=== PATIENT | female | born 2000 | race Caucasian/White ===

== ENCOUNTER 2024-08-12 13:03 | Inpatient (IN) | payer OTHER, MEDICAID ==
[2024-08-12] MEDS ORDERED: MAG HYDROX/AL HYDROX/SIMETH 355 ML BOTTLE PO PRN (13:08)
[2024-08-12] MEDS ORDERED: ACETAMINOPHEN TAB 325 MG TAB PO PRN (13:08)
[2024-08-12] MEDS ORDERED: hydrOXYzine HCL 50 MG/ML 1 ML VIAL IM PRN (13:11)
[2024-08-12] MEDS ORDERED: OLANZapine 10 MG TAB PO PRN (13:11)
--- NOTE | 2024-08-12 18:02 | P.MDCNMH ---
History of Present Illness H&P Date: 08/12/24 Chief Complaint: suicidal ideation 23-year-old female presented emergency department for suicidal ideation. She states that she" has no boundaries" told me that she has been violent with her boyfriend and pets. He does not know the cause of that. Unable to have clear line of thought. Denies hallucinations. Denies chest pain, shortness of breath, no nausea or vomiting. No recent illness. Of note she has not been eating properly over the past several months, she has been really thin and lost her period.. Review of Systems Complete review of system performed, pertinent positives per HPI, otherwise negative Past Medical History Past Medical History: No Reported History History of Any Multi-Drug Resistant Organisms: None Reported Additional Past Surgical History / Comment(s): Cochlear Implant 3 years ago in August. Past Anesthesia/Blood Transfusion Reactions: No Reported Reaction Past Psychological History: Anxiety Smoking Status: Never smoker Past Alcohol Use History: None Reported Past Drug Use History: Marijuana Additional Drug Use History / Comment(s): Pt smokes marajuana daily. Medications and Allergies Allergies Allergy/AdvReac Type Severity Reaction Status Date / Time No Known Allergies Allergy Verified 08/12/24 13:08 Physical Exam Vitals: Vital Signs Temp Pulse Resp BP Pulse Ox 08/12/24 16:47 98.1 F 120 H 20 112/78 96 Intake and Output 08/12/24 08/12/24 08/12/24 06:59 14:59 22:59 Other: Weight 38.8 kg 38 kg Vital signs reviewed General: nontoxic, no distress, appears at stated age Derm: warm, dry Head: atraumatic, normocephalic, symmetric Eyes: EOMI, no lid lag, anicteric sclera, pupils equal round reactive to light ENT: Nose and ears atraumatic Neck: No thyromegaly, supple Mouth: no lip lesion, mucus membranes moist Cardiovascular: S1S2 reg, no murmur, no edema Lungs: clear to auscultation bilateral, no rhonchi, no rales, no wheeze, no accessory muscle use Abdominal: soft, distended, mild generalized tenderness, no guarding, no appreciable organomegaly Ext: mild muscle atrophy, muscle strength muscle strength 5 out of 5 in all 4 extremities, no contractures Neuro: CN II-XII grossly intact. No focal deficits. Cranial Nerve Examination - Cranial Nerves Cranial Nerve II- Optic: Intact Cranial Nerve III- Oculomotor: Intact Cranial Nerve IV- Trochlear: Intact Cranial Nerve V- Trigeminal: Intact Cranial Nerve - Abducens: Intact Cranial Nerve VII- Facial: Intact Cranial Nerve VIII- Auditory: Intact Cranial Nerve IX- Glossopharyngeal: Intact Cranial Nerve X- Vagus: Intact Cranial Nerve XI- Accessory: Intact Cranial Nerve XII- Hypoglossal: Intact Assessment and Plan Plan: Amenorrhria with severe malnutrition Order Ensure supplements Patient encouraged to eat properly Psychiatrist to consider an appetite stimulant with the psychoactive medication regimen Check TSH and prolactin levels Metabolic acidosis Likely secondary to starvation ketosis Expected to resolve with proper nutrition and hydration Bipolar disorder with suicidal ideation and impulsiveness Management per psychiatry Labs including CBC, CMP, urinalysis and urine drug screen were reviewed from the outside hospital Thank you very much for the consultation, please do not hesitate to call back with any abnormal results or questions.
[2024-08-12] MEDS: busPIRone HCl 5 MG TAB PO SCH (19:56)
[2024-08-12] MEDS: QUEtiapine 50 MG TAB PO SCH (19:57)
[2024-08-13] MEDS: OLANZapine 10 MG VIAL IM PRN (02:48)
[2024-08-13] MEDS: lamoTRIgine 25 MG TAB PO SCH (09:02)
[2024-08-13] MEDS: MAGNESIUM HYDROXIDE 2,400 MG/30 ML CUP PO PRN (10:32)
[2024-08-13] MEDS: PNEUMOCOCCAL VACC-PREVNAR-20 0.5 ML SYR IM ONE (11:28)
--- NOTE | 2024-08-13 12:34 | P.HP ---
Psychiatric H&P - . H&P Date: 08/13/24 History & Physical: Allergies Allergy/AdvReac Type Severity Reaction Status Date / Time No Known Allergies Allergy Verified 08/12/24 13:08 Vital Signs Temp 97.8 F 08/13/24 09:00 Pulse 137 H 08/13/24 09:00 Resp 20 08/13/24 09:00 BP 120/76 08/13/24 09:00 Pulse Ox 97 08/13/24 09:00 FiO2 Intake & Output 08/12/24 08/13/24 08/13/24 18:59 06:59 18:59 Weight 38 kg Laboratory Last Values TSH 2.220 mIU/L (0.465-4.680) 08/13/24 10:19 08/13/24 12:23 IDENTIFYING DATA: Patient is a 23-year-old female, living with partner, employed at school for [employer] CHIEF COMPLAINT: SI, paranoia, dissociation HPI: Patient presented to the hospital with suicidal ideations, racing thoughts, paranoia, dissociation with nonadherence to medication. Per EPS, "Pt reports SI and racing thoughts. Pt has as hx of suicide attempts. Pt has been non compliant with medications for 6+ months. Charting reports paranoia, anxiety, and disassociation. Covid neg, hcg neg, UA WNL, UDS +MJ. ETOH <10. No prns or restraints reported. No guardian. ADHD, bipolar dx per charting. [facility] was consulted in [place] [facility] and pt was restarted on Buspar 7.5mg BID, Lamotrigine 25 QD, and Seroquel 50mg BID. Pt pet/cert." Patient seen and evaluated on the unit and was agreeable with speaking to junior underwriter in office. She states being here due to her having symptoms of cognitive dissonance described as her internally knowing the right thing to do however externally doing the wrong things. She feels as though she is manipulative, lacks empathy and thus experiences shame and guilt for her behaviors. She uses several examples including using her partner home she broke up with yesterday because of her manipulation, stating that she would use him to get what she want such as going to the dispensary for her due to her not wanting to be seen buying cannabis. 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 She states manipulating some of the children at her school such as allowing herself to hold their hand despite her knowing this is against the rules in order to build a rapport so that she can be able to use them in the future. She talked about her history of watching under age porn which causes her distress and shame. She expresses sleep and appetite difficulties, low energy, anhedonia and suicidal ideations, no plan or intent that has been intermittent since elementary school. She is interested in therapy and personality disorders were discussed with patient and she was encouraged to consider DBT. Patient denies any homicidal ideations intent or plan. At this time patient denies any auditory or visual hallucinations. Patient denies any flight of ideas racing thoughts and increased in goal directed behavior. Patient admits to using 1 g of cannabis per week. PAST PSYCHIATRIC HISTORY: Patient has a history of bipolar disorder. Patient denies being on any psychiatric medications. She has tried Vraylar and Zyprexa previously. Patient reports 1 previous inpatient hospitalization back in September 2023. Patient denies any psychiatric outpatient follow-up. Patient reports one suicide attempt back at the age of 12-13 PMH: as per ER note ALLERGIES: as per EMR SUBSTANCE USE HISTORY: Patient reports smoking 1 g of cannabis per week, denying any other substances. FAMILY PSYCHIATRIC/SUBSTANCE USE HISTORY: Patient states both of her parents have bipolar disorder SOCIAL HISTORY: Patient was recently living with her partner however she states due to their break-up she would not return home with them. She currently works at the [employer] for the [employer]. She has no children. MENTAL STATUS EXAM: General Appearance: Patient appears to be stated age is alert, directable, and attempts to cooperate. Patient appears to have poor hygiene and grooming. Behavior: Patient is seated without any agitated behavior. Speech: Patient's speech is fluent and nonpressured. Mood/Affect: Patient reports their mood is depressed, affect is congruent and constricted. Suicidality/Homicidality: Patient denies having any homicidal ideation intent or plan. Patient reports suicidal ideations, no plan or intent Perceptions: Patient denies any visual hallucinations and denies any auditory hallucinations Though content/process: Patient is fixated on her being manipulative, shame/guilt however thought process is linear Memory and concentration: AOX3, grossly intact for the purposes of this session. Can spell "WORLD" backwards Judgment and insight: Fair STRENGTHS/WEAKNESSES: strength is that patient is resilient. Weakness is that patient has poor judgment and is impulsive INTELLECT: Average IMPRESSIONS: Bipolar disorder, current episode depressed Cannabis use disorder Cluster B traits PLAN: -Patient is admitted under voluntary status to MHU for stabilization of psychiatric symptoms and safety. Patient has signed adult voluntary form and and is placed in patient's chart. -Medications : Increase Seroquel to 50 mg daily and 100 mg at bedtime for psychosis/insomnia, continue Lamictal 25 mg daily for mood stabilization, BuSpar 7.5 mg twice daily for anxiety - Hydroxyzine and Zyprexa PRN for agitation/aggression -Patient was counselled on substance abuse and desired to cut back on use -Patient was informed of the risks, benefits and side effects of the medication and patient verbally consented to taking the medications. Patient signed med consent form and was placed in chart. Patient offered and accepted patient education sheet for psychotropic medications. -Internal Medicine consult to perform medical evaluation and physical. -NRT -not needed as patient does not smoke -SW on board for discharge planning. Encourage patient to participate in groups to work on coping skills.
[2024-08-13] MEDS: QUEtiapine 100 MG TAB PO SCH (20:13)
[2024-08-13] MEDS: hydrOXYzine pamoate 25 MG CAP PO PRN (20:13)
[2024-08-14] MEDS: QUEtiapine 50 MG TAB PO SCH (08:48)
[2024-08-14 09:57] LABS: Glucose,Whole Blood 95 mg/dL (70-110)
[2024-08-14 11:38] VITALS: BMI 17.6
--- NOTE | 2024-08-14 18:52 | P.PN ---
Progress Note - Text Progress Note Date: 08/14/24 Interval history: Patient was seen talking on the phone and was directable and agreeable to speak with designer writer. She is calm and polite on assessment. At this time patient denies any suicidal or homicidal ideation, intent or plan. Denies any auditory or visual hallucinations. Patient reports some daytime sleepiness from the Seroquel, but otherwise denies any side effects from the medications and has been compliant with meds. She denies rash from the Lamictal. She agrees to continue the Seroquel at the current dose for another day and if she continues to feel daytime sleepiness she will let the psychiatrist know tomorrow. She denies any other concerns today. Mental status exam: General Appearance: Patient appears to be stated age, petite slender adult female, adequate hygiene, wearing hearing device in ears Behavior: No agitated behavior. Patient is calm and directable. Speech: Patient's speech is fluent and non-pressured. Mood/Affect: Mood is improving mildly, affect is congruent and constricted. Suicidality/Homicidality: Patient denies having any suicidal or homicidal ideation intent or plan. Perceptions: Patient denies any auditory or visual hallucinations. Though content/process: There is no evidence of any delusional thought content and thought process is linear and goal-directed. Memory and concentration: AOX3, grossly intact for the purposes of this session Judgment and insight: improving mildly Assessment/Plan: Continue with current diagnosis. Patient continues to meet criteria for inpatient psychiatric admission for symptom stabilization and safety. Patient will be maintained on current psychotropic medication regimen. Monitor for medication compliance and for any psychotropic medication side effects. Will continue to monitor ongoing response to treatment. Encouraged participation in milieu.
[2024-08-15] MEDS: lamoTRIgine 25 MG TAB PO SCH (12:18)
--- NOTE | 2024-08-15 12:57 | P.PN ---
Progress Note - Text Progress Note Date: 08/15/24 Interval History: Patient was seen today she was taking part in the group earlier today in the [facility]. she was fairly directable and agreeable to speak in the office. she states that today she has been feeling a bit anxious, is endorsing anhedonia mainly with depression. Claims that she is struggling with finding motivation and energy to do things. Claims that she feels that she is also bit tired during the day since taking the Seroquel. She claims that she is engaged with her treatment and wants to get better, did claim that she has a history of having mood swings and manic episodes and also agitation irritability. Also claims that she is concerned about having "manipulative behavior" towards other people at times.. States that she had poor sleep, about 4 hrs. her appetite is poor. she states that she is going to groups, showering. Denies any suicidal or homicidal thoughts intent or plan. and denies any Ah or VH. Not reporting any other side effects at this time. MENTAL STATUS EXAM: General Appearance: Patient appears to be stated age is alert, directable, and attempts to cooperate. Patient appears to have improving attempts to cooperate. Behavior: Patient is seated without any agitated behavior. Attempts to cooperate Speech: Patient's speech is fluent and nonpressured. Fairly concrete Mood/Affect: Patient reports their mood is depressed/anhedonia and anxiety, affect is congruent and constricted. Suicidality/Homicidality: Patient denies having any homicidal ideation intent or plan. Patient denies any suicidal ideations, no plan or intent Perceptions: Patient denies any visual hallucinations and denies any auditory hallucinations Though content/process: Patient is fixated on her being manipulative, shame/guilt, endorsing depression and anhedonia. Denies any delusional thinking or paranoia. Memory and concentration: AOX3, grossly intact for the purposes of this session Judgment and insight: Improving mildly IMPRESSIONS: Bipolar disorder, current episode depressed Cannabis use disorder Cluster B traits PLAN: -Patient is admitted under voluntary status to MHU for stabilization of psychiatric symptoms and safety. Patient has signed adult voluntary form and and is placed in patient's chart. -Medications : decrease Seroquel 100 mg at bedtime for psychosis/insomnia, increase Lamictal 25 mg bid for mood stabilization, increase BuSpar 10 mg twice daily for anxiety - Hydroxyzine and Zyprexa PRN for agitation/aggression -NRT -not needed as patient does not smoke -SW on board for discharge planning. Encourage patient to participate in groups to work on coping skills. Will consider discharge if patient is improving. Patient did sign AMA and it will be up for review in the evening of 08/17.
[2024-08-15] MEDS: busPIRone HCl 10 MG TAB PO SCH (20:31)
--- NOTE | 2024-08-16 11:42 | P.PN ---
Progress Note - Text Progress Note Date: 08/16/24 Interval History: Patient was seen today she was taking part in the group earlier today in the [facility]. Patient was agreeable to speak to food writer in the office today. She claims that she is doing a bit better with regard to her mood and anxiety. Claims that she feels less irritable. States that she is still feeling "anger" however she states that she is trying to work on this by going to group. Claims that she feels that she made a mistake by signing the AMA and wants to rescind it today. We spoke about potential discharge before the weekend which she is okay with. Claims that she did not sleep well last night was okay to try a higher dose of Seroquel for tonight. She states that she is not having any side effects at this time. Has been eating well. she states that she is going to groups, showering. Denies any suicidal or homicidal thoughts intent or plan. and denies any Ah or VH. Not reporting any other side effects at this time. MENTAL STATUS EXAM: General Appearance: Patient appears to be thin, curly hair, stated age is alert, directable, and attempts to cooperate. Patient appears to have improving attempts to cooperate. Behavior: Patient is seated without any agitated behavior. Attempts to cooperate, improving mildly Speech: Patient's speech is fluent and nonpressured. Fairly concrete Mood/Affect: Patient reports their mood is improving mildly, is endorsing "anger", affect is congruent and constricted. Suicidality/Homicidality: Patient denies having any homicidal ideation intent or plan. Patient denies any suicidal ideations, no plan or intent Perceptions: Patient denies any visual hallucinations and denies any auditory hallucinations Though content/process: Patient is fairly concrete, logical, goal oriented. Denies any delusional thinking or paranoia. Focused on her symptoms Memory and concentration: AOX3, grossly intact for the purposes of this session Judgment and insight: Improving mildly IMPRESSIONS: Bipolar disorder, current episode depressed Cannabis use disorder Cluster B traits PLAN: -Patient is admitted under voluntary status to MHU for stabilization of psychiatric symptoms and safety. Patient has signed adult voluntary form and and is placed in patient's chart. -Medications : Increase Seroquel 150 mg at bedtime for psychosis/insomnia, she is not reporting a rash at this time, will continue to monitor. Lamictal 25 mg bid for mood stabilization, BuSpar 10 mg twice daily for anxiety - Hydroxyzine and Zyprexa PRN for agitation/aggression -NRT -not needed as patient does not smoke -SW on board for discharge planning. Encourage patient to participate in groups to work on coping skills. Will consider discharge likely Wednesday if patient is improving. Patient eventually signed AMA however rescinded it today.
[2024-08-16] MEDS: QUEtiapine 50 MG TAB PO SCH (20:30)
--- NOTE | 2024-08-17 14:00 | P.PN ---
Progress Note - Text Progress Note Date: 08/17/24 Interval History: Patient was seen today she was taking part in the group earlier today in the [facility]. Patient was agreeable to speak to production underwriter in the office today. Patient claims that she slept on and off last night only about 5 hours. States that she woke up this morning and was feeling "suicidal" and claims that she feels other people are talking about her. She apparently called her mother yesterday and informed her that she was doing poorly on the unit having suicidal thoughts and not ready to go home. Patient has admitted to production underwriter in the past that she was "manipulative" and also has been deceptive. She was confronted about this possibility as she has been describing to production underwriter and others that she has been improving and patient began being defensive. She was endorsing mild paranoia today. Was agreeable to continuing with treatment. Have poor eye contact. Claims that her mood is fair however she is still having anxiety. Believes that she might not be ready to go back to her mother's house tomorrow. Has been eating well. she states that she is going to groups, showering. Denies any suicidal or homicidal thoughts intent or plan. and denies any Ah or VH. Not reporting any other side effects at this time. MENTAL STATUS EXAM: General Appearance: Patient appears to be thin, curly hair, stated age is alert, directable, and attempts to cooperate. Patient appears to have improving attempts to cooperate. Behavior: Patient is seated without any agitated behavior. Superficial, manipulative Speech: Patient's speech is fluent and nonpressured. Fairly concrete Mood/Affect: Patient reports their mood is improving mildly, is endorsing "anxious", affect is congruent and constricted. Suicidality/Homicidality: Patient denies having any homicidal ideation intent or plan. Patient denies any suicidal ideations, no plan or intent Perceptions: Patient denies any visual hallucinations and denies any auditory hallucinations Though content/process: Patient is fairly concrete, logical, goal oriented. Denies any delusional thinking or paranoia. Focused on her symptoms. Possible deception Memory and concentration: AOX3, grossly intact for the purposes of this session Judgment and insight: Poor, improving mildly IMPRESSIONS: Bipolar disorder, current episode depressed Cannabis use disorder Cluster B personality traits PLAN: -Patient is admitted under voluntary status to MHU for stabilization of psychiatric symptoms and safety. Patient has signed adult voluntary form and and is placed in patient's chart. -Medications : Increase Seroquel 200 mg at bedtime for psychosis/insomnia, increase Lamictal 25 mg tid for mood stabilization, increase she is not reporting a rash at this time, will continue to monitor. BuSpar 15 mg twice daily for anxiety - Hydroxyzine and Zyprexa PRN for agitation/aggression -NRT -not needed as patient does not smoke -SW on board for discharge planning. Encourage patient to participate in groups to work on coping skills. Will consider discharge likely Wednesday if patient is improving. Will have a family meeting over the phone with patient's mother tomorrow to discuss further discharge planning treatment and any other issues or concerns.
[2024-08-17] MEDS: lamoTRIgine 25 MG TAB PO SCH (16:27)
[2024-08-17] MEDS: busPIRone HCl 5 MG TAB PO SCH (20:18)
[2024-08-17] MEDS: QUEtiapine 200 MG TAB PO SCH (20:18)
[2024-08-18 09:20] VITALS: BP 107/74; PULSE 125; RESP 16; TEMP 98
--- NOTE | 2024-08-18 09:47 | P.DS ---
Providers Date of admission: 08/12/24 16:26 Expected date of discharge: 08/18/24 Attending physician: Brandon Sargent MD Consults: 08/12/24 13:08 Consult Physician Routine Consulting Provider: Yana Physician Consult Reason/Comments: H&P Do you want consulting provider notified?: Yes Primary care physician: Stated None - Discharge Diagnosis(es) (1) Bipolar disorder current episode depressed Current Visit: Yes Status: Acute Priority: High (2) Cannabis use disorder Current Visit: Yes Status: Acute Priority: Medium (3) Cluster B personality disorder Current Visit: Yes Status: Acute Priority: High Hospital Course: Admission HPI: Admission note was completed by Dr. 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 Patient presented to the hospital with suicidal ideations, racing thoughts, paranoia, dissociation with nonadherence to medication. Per EPS, "Pt reports SI and racing thoughts. Pt has as hx of suicide attempts. Pt has been non compliant with medications for 6+ months. Charting reports paranoia, anxiety, and disassociation. Covid neg, hcg neg, UA WNL, UDS +MJ. ETOH <10. No prns or restraints reported. No guardian. ADHD, bipolar dx per charting. Pscy was consulted in [place] [facility] and pt was restarted on Buspar 7.5mg BID, Lamotrigine 25 QD, and Seroquel 50mg BID. Pt pet/cert." Patient seen and evaluated on the unit and was agreeable with speaking to medical underwriter in office. She states being here due to her having symptoms of cognitive dissonance described as her internally knowing the right thing to do however externally doing the wrong things. She feels as though she is manipulative, lacks empathy and thus experiences shame and guilt for her behaviors. She uses several examples including using her partner home she broke up with yesterday because of her manipulation, stating that she would use him to get what she want such as going to the dispensary for her due to her not wanting to be seen buying cannabis. 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 She states manipulating some of the children at her school such as allowing herself to hold their hand despite her knowing this is against the rules in order to build a rapport so that she can be able to use them in the future. She talked about her history of watching under age porn which causes her distress and shame. She expresses sleep and appetite difficulties, low energy, anhedonia and suicidal ideations, no plan or intent that has been intermittent since elementary school. She is interested in therapy and personality disorders were discussed with patient and she was encouraged to consider DBT. Patient denies any homicidal ideations intent or plan. At this time patient denies any auditory or visual hallucinations. Patient denies any flight of ideas racing thoughts and increased in goal directed behavior. Patient admits to using 1 g of cannabis per week." Hospital course: Upon admission to the unit patient was directable and agreeable to commence treatment and signed adult voluntary form. Patient was initially depressed anxious suicidal however with time and treatment patient got along well with other patients on the unit and followed unit protocol. Patient was compliant with the medications and denied any side effects throughout hospital course. Patient was started on Seroquel increased to dose of 200 mg nightly for mood stabilization/insomnia, Lamictal increased to a dose of 100 mg daily for mood stabilization/depression. Vistaril as needed for anxiety, BuSpar 15 mg twice daily for anxiety. Patient was informed of the possibility of a skin rash and to monitor skin, no reported rashes during hospitalization. Patient spoke of her stressors and engaged in therapy both group/activity therapy. Patient was also seen by medical team for history and physical exam. Throughout the course of the hospitalization patient gradually improved with regards to mood, anxiety, suicidal thoughts, sleep and returned back to their baseline level of functioning. On the day of discharge patient denied any suicidal or homicidal ideations intent or plan denied any auditory or visual hallucinations. Patient endorsed wanting to live for their health, future and family. The patient denied any access to guns or weapons. Patient denied any paranoia and did not endorse any delusions. Patient does have a significant history of substance abuse and was counseled on abstaining from all substances including alcohol and marijuana. Patient elected to do outpatient substance use treatment program through their outpatient provider. Patient was also counseled on the medications and need for regular compliance and was encouraged to follow-up with their outpatient appointment for mental health and also for primary care. On the day of discharge, medical underwriter did a family meeting with patient's mother and patient over the phone, to discuss patient's diagnosis treatment care and also safety concerns in the house, we spoke about follow-up as well, questions were answered. Mother did ensure that the house was secured guns weapons locked and secured or removed from the house. She will be coming to pick patient up from the hospital. Mental status exam: General Appearance: Patient appears to be thin, curly hair, stated age is alert, pleasant, and cooperative. Patient is in no acute distress and has improved hygiene and grooming Behavior: Patient is calmly seated without any agitated behavior. More cooperative today Speech: Patient's speech is fluent and nonpressured. Mood/Affect: Patient reports their mood is "better", affect is congruent Suicidality/Homicidality: Patient denies having any suicidal or homicidal ideation intent or plan. Perceptions: Patient denies any auditory or visual hallucinations. Though content/process: There is no evidence of any delusional thought content and thought process is linear and goal-directed. More future oriented Memory and concentration: AOX3, grossly intact for the purposes of this session. Can spell "WORLD" backwards correctly. Judgment and insight: Chronically poor/impulsive, however has improved with guarded prognosis Impression: Bipolar disorder, current episode depressed Cannabis use disorder Cluster B personality disorder Plan: -Continue with discharge today as patient has improved and stabilized psychiatrically and is not currently an imminent threat to themself and/or others. Patient will remain at chronically elevated risk for harm to self and/or others due to their impulsivity and personality disorder. -Continue medications: Seroquel 200 mg nightly for mood stabilization/insomnia, Lamictal 100 mg daily for mood stabilization/depression, BuSpar 15 mg twice daily for anxiety. -Patient was counseled on the need for medication compliance and appropriate follow-up at mental health and also primary care for medical issues. Patient verbalized understanding and agreed. -Social work to help coordinate patients discharge today. Hand Rug Braider did a family meeting with patient's mother and patient over the phone today, see above for details. also to ensure safe home environment that guns/weapons are either remov ed from the home or locked away. Social work also to arrange for patients follow up appointments for psychiatric care along with follow up with primary care provider. Will also provide intensive outpatient program information for patient locally in [facility]. -Patient counseled on abstaining from recreational drugs and marijuana and alcohol. Was informed/educated on the adverse effects on their physical and mental health. Patient verbally agreed and understood. -Patient was instructed to return to the hospital or seek immediate medical care if their psychiatric or medical symptoms do worsen or reoccur. Allergies Allergy/AdvReac Type Severity Reaction Status Date / Time No Known Allergies Allergy Verified 08/12/24 13:08 Laboratory Results POC Glucose (mg/dL) 95 mg/dL (70-110) 08/14/24 09:56 POC Glu Fnps ID Humberto Hannah 08/14/24 09:[address] Glu mg/dL 108 mg/dL 08/13/24 10:19 Hemoglobin A1c 5.4 % (<=6.0) 08/13/24 10:19 TSH 2.220 mIU/L (0.465-4.680) 08/13/24 10:19 Prolactin 34.700 ng/mL (2.800-29.200) H 08/13/24 10:19 Vital Signs Temp 98.0 F 08/18/24 09:00 Pulse 125 H 08/18/24 09:00 Resp 16 08/18/24 09:00 BP 107/74 08/18/24 09:00 Pulse Ox 100 08/18/24 09:00 FiO2 Intake & Output 08/17/24 08/18/24 08/18/24 18:59 06:59 18:59 Weight 39.5 kg Patient Condition at Discharge: Stable Plan - Discharge Summary Discharge Rx Participant: No New Discharge Prescriptions: New busPIRone HCL [Buspar] 15 mg PO BID 30 Days #120 tablet lamoTRIgine [LaMICtal] 100 mg PO DAILY 30 Days #30 tab QUEtiapine [SEROquel] 200 mg PO HS 30 Days #30 tab hydrOXYzine pamoate [Vistaril] 50 mg PO DAILY PRN 30 Days #30 cap PRN Reason: Agitation Or Acute Anxiety Discharge Medication List QUEtiapine [SEROquel] 200 mg PO HS 30 Days #30 tab 08/18/24 [Rx] busPIRone HCL [Buspar] 15 mg PO BID 30 Days #120 tablet 08/18/24 [Rx] hydrOXYzine pamoate [Vistaril] 50 mg PO DAILY PRN 30 Days #30 cap 08/18/24 [Rx] lamoTRIgine [LaMICtal] 100 mg PO DAILY 30 Days #30 tab 08/18/24 [Rx] Follow up Appointment(s)/Referral(s): Other, other [Other] - 08/23/24 1:00 pm Patient Instructions/Handouts: Depression (DC) Activity/Diet/Wound Care/Special Instructions: Avoid the use of street drugs and alcohol. Take all medications as prescribed. When you are in need of refills on your medications, please contact your medical provider and/or outpatient psychiatrist/provider to have this done. Please go to your scheduled outpatient appointment for aftercare treatment. If symptoms return or become worse, call the crisis line at and/or go to the nearest emergency room for evaluation. National Suicide Hotline [facility] confidentiality statement: "The information contained in this communication, including attachments, is confidential, may be privileged, and is intended only for the use of the named recipient(s). Unauthorized use, disclosure, forwarding or copying is strictly prohibited and may be unlawful. If you have received this communication in error, please notify me IMMEDIATELY at the phone number or pager listed above. Discharge Disposition: HOME SELF-CARE
[2024-08-18] MEDS ORDERED: lamoTRIgine 25 MG TAB PO ONE (10:00)
[2024-08-19] MEDS ORDERED: lamoTRIgine 100 MG TAB PO SCH (09:00)
== END 2024-08-18 11:25 | disposition home or self-care (01) | DRG 885 ==
LOC: 3MHU 16:26
PROVIDERS: ADMIT Psychiatry & Neurology Psychiatry; ATTEND Psychiatry & Neurology Psychiatry
DX: F31.30 Bipolar disorder, current episode depressed, mild or moderate severity, unspecified (principal); E43 Unspecified severe protein-calorie malnutrition; E87.20 Acidosis, unspecified; F22 Delusional disorders; F12.10 Cannabis abuse, uncomplicated; Z68.1 Body mass index [BMI] 19.9 or less, adult; R45.851 Suicidal ideations; F60.89 Other specific personality disorders; F41.9 Anxiety disorder, unspecified; F90.9 Attention-deficit hyperactivity disorder, unspecified type; H91.90 Unspecified hearing loss, unspecified ear; G47.00 Insomnia, unspecified; Z79.899 Other long term (current) drug therapy; Z91.148 Patient's other noncompliance with medication regimen for other reason; Z91.51 Personal history of suicidal behavior; Z71.41 Alcohol abuse counseling and surveillance of alcoholic
CPT/HCPCS: 83036; 84146; 84443